=== PATIENT | female | born 1940 | race Caucasian/White ===

== ENCOUNTER → 2021-02-09 12:17 | Outpatient (CLI) | payer MEDICARE, SELFPAY ==
--- NOTE | ~2021-02-09 | XR_ITS ---
EXAMINATION: XR knee RT 3V DATE: 02/09/2021 13:30 INDICATION: Right knee pain TECHNIQUE: Three views of the right knee were obtained. COMPARISON: None. FINDINGS: Bone alignment is normal. There is no fracture. 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 No joint effusion/synovitis. Calcified atherosclerosis is noted. IMPRESSION: 1. 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 Reviewed, dictated and finalized at location A.
--- NOTE | ~2021-02-09 | XR_ITS ---
XR knee LT 3V DATE: 02/09/2021 13:30 INDICATION: Right knee pain, left knee pain. TECHNIQUE: [place] and standing AP and lateral views COMPARISON: None FINDINGS: Diffuse osteopenia. Superior pole patellar enthesopathy at quadriceps tendon insertion. There is prominent joint space narrowing at the medial compartment with particular spurring. No fracture or dislocation or joint effusion. No radiopaque intra-articular loose body or chondrocalc inosis. No periosteal reaction or bone destruction. Femoral and popliteal artery calcification IMPRESSION: Osteoarthritis involving particularly the medial compartment Reviewed, dictated and finalized at location B.
== END ==
PROVIDERS: PCP Physician Assistant; Visit Provider Physician Assistant
DX: M25.561 Pain in right knee (principal); M25.562 Pain in left knee
CPT/HCPCS: 73562

== ENCOUNTER 2021-03-05 12:57 | Outpatient (CLI) | payer MEDICARE, SELFPAY ==
--- NOTE | ~2021-03-05 | DEXA_ITS ---
Bone Density Report Name: Cinthya Armando Age: 80 Sex: Female Ethnicity: White Date of : 1940 Indication: postmenopausal; height loss; Referring Provider: EDKAMILA Study: Bone densitometry was performed. Exam Date: March 05, 2021 Accession number: [id number] Bone Density: Region BMD T-score Z-score Classification AP Spine (L1-L4) 1.173 1.1 3.9 Normal Femoral Neck (Left) 0.709 -1.3 1.2 Osteopenia Total Hip (Left) 0.896 -0.4 1.8 Normal Total Hip Bilateral Avg 0.886 -0.5 1.8 Normal Femoral Neck (Right) 0.696 -1.4 1.1 Osteopenia Total Hip (Right) 0.875 -0.6 1.7 Normal World Health Organization criteria for BMD impression classify patients as: Normal (T-score at or above -1.0), Osteopenia (T-score between -1.0 and -2.5), or Osteoporosis (T-score at or below -2.5). 10-year Fracture Risk(1): Major Osteoporotic Fracture 13% Hip Fracture 3.1% Reported Risk Factors: [place] (), Neck BMD=0.696, BMI=30.9 (1) FRAX(R) Version 3.08. Fracture probability calculated for an untreated patient. Fracture probability may be lower if the patient has received treatment. Previous Exams: Region Exam Age BMD T-score BMD Change BMD Change Date g/cm2 vs Baseline vs Previous AP Spine(L1-L4) 03/05/2021 80 1.173 1.1 0.072(6.5%)# 0.072(6.5%)# 07/19/2002 62 1.101 0.5 Total Hip(Left) 03/05/2021 80 0.896 -0.4 -0.042(-4.5%)# -0.042(-4.5%)# 07/19/2002 62 0.939 0.0 Total Hip(Right) 03/05/2021 80 0.875 -0.6 -0.006(-0.7%)# -0.006(-0.7%)# 07/19/2002 62 0.881 -0.5 *Denotes significance at 95% confidence level, LSC for AP Spine = 0.022 g/cm2, LSC for Total Hip = 0.027 g/cm2 Clinical Information Provided by Patient: Has used the following medications: Vitamin D, Calcium Patient maximum height was 64 Drinks caffeinated beverages Onset of menses at age 11 Number of children 3 Impression: The patient has low bone mass, based on the Right Femoral Neck T-score. The patient has an estimated ten-year risk of hip fracture of 3.1% and an estimated ten-year risk of major fracture of 13%, based on the WHO FRAX algorithm. No significant bone loss was observed. Discussion: BONE DENSITY IS LOW AT ONE OR MORE SKELETAL SITES. THE PATIENT'S BMD AND CLINICAL RISK FACTORS CONTRIBUTE TO THIS PATIENT'S INCREASED RISK OF FRACTURE. This patient's lowest T-score is low at one or more skeletal sites. It meets the World Health Organization's
== END 2021-03-05 12:58 | disposition home or self-care (01) ==
LOC: ANHIMG 13:00
PROVIDERS: PCP Physician Assistant; Visit Provider Physician Assistant
DX: Z78.0 Asymptomatic menopausal state (principal); M85.852 Other specified disorders of bone density and structure, left thigh; M85.851 Other specified disorders of bone density and structure, right thigh
CPT/HCPCS: 77080

== ENCOUNTER 2022-04-21 14:53 | Emergency (ER) | payer MEDICARE, SELFPAY ==
[2022-04-21] VITALS (20 sets, daily range): BP systolic 145–185; BP diastolic 67–135; PULSE 67–85; RESP 7–23; TEMP 36.9; O2SAT 97–100
--- NOTE | ~2022-04-21 | XR_ITS ---
XR chest 1V portable 04/21/2022 17:00 Indication: Cough and weakness. Covid positive. Procedure: AP portable chest Comparison: Comparison to multiple prior studies sequentially, with oldest reviewed study dated 06/2009. Findings: Lung bases are attenuated due to breast implants. Heart size normal. Possible small volume of fluid in the right fissure. No focal pneumonia, edema, or pneumothorax. There is atherosclerosis. Impression: 1: Possible small volume of fluid in the right fissure. Otherwise, no acute cardiopulmonary disease. Reviewed, dictated and finalized at location A. NG BRUSHER Impression: 1: Possible small volume of fluid in the right fissure. Otherwise, no acute car diopulmonary disease.
--- NOTE | 2022-04-21 15:18 | ECG_ITS ---
Measurements Intervals [place] Rate: 72 P: 55 UT: 176 QRS: 38 QRSD: 101 T: 79 QT: 396 QTc: 435 Interpretive Statements SINUS RHYTHM NONSPECIFIC T-WAVE ABNORMALITY BORDERLINE ECG NO PREVIOUS ECG AVAILABLE FOR COMPARISON Electronically Signed On 04-22-2022 7:42:24 [employer] by Jerry Napoles M.D.
[2022-04-21 15:41] LABS: Eosinophils Percent Auto 0.5 % (0-4.4); Hematocrit 43.5 % (37.0-47.0); Hemoglobin 14.4 g/dL (12.0-15.0); Lymphocytes Absolute Auto 1.03 K/mm3 (0.9-3.2); Lymphocytes Percent Auto 27.2 % (18.3-44.2); Mean Corpuscular HGB Conc 33.1 g/dl (32-36); Mean Corpuscular Hemoglobin 30.8 pg (26-34); Mean Corpuscular Volume 92.9 fl (80-100); Monocytes Absolute Auto 0.4 K/mm3 (0.1-0.6); Monocytes Percent Auto 10.8 % (2.6-8.5); Neutrophils Absolute Auto 2.3 K/mm3 (1.3-6.7); Neutrophils Percent Auto 61.5 % (45.5-73.1); Platelet Count Result 213 k/mm3 (150-375); Red Blood Count 4.68 M/mm3 (4.2-5.4); Red Cell Distribution Width 12.9 % (11.5-14.5); White Blood Count 3.8 K/mm3 (4.5-10.0)
[2022-04-21 15:46] LABS: Alanine Aminotransferase 54 U/L (6-35); Albumin Level 4.7 g/dL (3.5-5.1); Alkaline Phosphatase 98 U/L (38-126); Anion Gap 9 mmol/L (8-16); Aspartate Amino Transferase 89 U/L (14-36); Bilirubin,Total 0.6 mg/dL (0.2-1.3); Blood Urea Nitrogen 18 mg/dL (7-17); Carbon Dioxide 30 mmol/L (22-30); Chloride 90 mmol/L (98-107); Estimated CRCL calculation 41 ml/min; Estimated Glomerular Filt Rate > 60; Glucose 99 mg/dL (65-110); Potassium 3.3 mmol/L (3.4-5.0); Sodium 129 mmol/L (137-145)
[2022-04-21 16:12] LABS: Influenza A QL RT-PCR Negative (Negative); Influenza B QL RT-PCR Negative (Negative); SARS-CoV-2 RNA PCR Positive
[2022-04-21 16:53] LABS: Appearance Urine Slightly Cloudy (Clear); Bilirubin Urine Negative (Negative); Blood Urine Negative (Negative); Color Urine Yellow (Yellow); Glucose Urine UA Negative (Negative); Ketones Urine Trace mg/dL (Negative); Leukocyte Esterase Ur 3+ LEU/UL (Negative); Nitrate Urine Positive (Negative); Protein Urine Negative (Negative); Specific Grav Ur <= 1.005 (1.001-1.035); Urobilinogen Urine 0.2 mg/dL (<2.0)
[2022-04-21 17:05] LABS: Bacteria Urine 4+ /hpf; Squamous Epithelial Cell Urine Rare /hpf (Few); WBC Clumps Urine Present /HPF; WBC Urine >75 /hpf
[2022-04-21 17:11] LABS: Add Urine Microscopic? YES
[2022-04-21] MEDS: SODIUM CHLORIDE 0.9% IV 500 ML 999 ML IV CONT ×2 (17:33→19:04)
--- NOTE | 2022-04-21 17:51 | ED.WEAKNESS ---
HPI - Weakness General Chief complaint: Weakness Stated complaint: pneumonia Time Seen by Provider: 04/21/22 17:01 Source: patient Mode of arrival: ambulatory Limitations: no limitations History of Present Illness HPI Narrative: This is an 82-year-old female that presents to the emergency department for generalized weakness. Reports she was diagnosed with COVID a week ago. Reports she thought she was starting to feel better yesterday. She woke up this morning and felt very weak. She has no longer having any fevers. She does have some continued cough and congestion. Denies chest pain, shortness of breath, abdominal pain, vomiting, or dysuria. Related Data Allergies Allergy/AdvReac Type Severity Reaction Status Date / Time No Known Allergies Allergy Unknown Verified 04/21/22 15:17 Review of Systems Review of Systems: CONSTITUTIONAL: Denies fever ENT: Reports congestion CARDIOVASCULAR: Denies chest pain, or edema. RESPIRATORY: Reports cough. Denies dyspnea. GASTROINTESTINAL: Denies abdominal pain, nausea, vomiting GENITOURINARY: Denies dysuria NEUROLOGIC: Reports generalized weakness. All systems reviewed & are unremarkable except as noted in HPI and below PMFSH Past Medical History Medical History (Updated 04/21/22 @ 19:31 by Regina Hatch PA-C) History of hyperlipidemia History of hypertension Social History Social History (Updated 04/21/22 @ 17:53 by Regina Hatch PA-C) Smoking status: Former smoker Exam Narrative: GENERAL: Well-appearing, well-nourished, and in no acute distress. HEAD: Normocephalic, atraumatic. EYES: EOMI. ENT: Nares clear, no rhinorrhea or epistaxis. Mucous membranes moist. Oropharynx without tonsillar hypertrophy exudate or other lesions. Bilateral TMs pearly dean non-bulging NECK: Supple. No adenopathy or masses. CHEST: Clear to auscultation. No respiratory distress. No wheezes rales or rhonchi HEART: Regular rate and rhythm. No murmur heard. Normal peripheral pulses. EXTREMITIES: Normal range of motion. No edema. SKIN: Warm, dry, no rash. NEURO: No focal deficits. Alert and oriented x3. PSYCH: Normal mood and affect Course Consultations Consultation #1: Spoke with patient's PCP and patient and workupLe. She feels comfortable with discharge as this is patient's wish to go home. We will follow-up with further blood work and monitoring Date: 04/21/22 Vital Signs Vital signs: Vital Signs Temperature 98.5 F 04/21/22 15:14 Pulse Rate 85 04/21/22 15:14 Respiratory Rate 16 04/21/22 15:14 Blood Pressure 145/85 H 04/21/22 15:14 Pulse Oximetry 98 04/21/22 15:14 Temperature 98.5 F 04/21/22 15:14 Pulse Rate 70 04/21/22 18:37 Respiratory Rate 17 04/21/22 18:37 Blood Pressure 185/76 H 04/21/22 18:37 Pulse Oximetry 100 04/21/22 18:37 MDM - Weakness MDM Narrative Medical decision making narrative: Patient presents to the emergency department for generalized weakness. She is afebrile and nontoxic-appearing. Has been intermittently hypertensive, otherwise her vitals are normal. CBC shows leukopenia consistent with her current viral infection. Metabolic panel does show some evidence of dehydration. Patient given a liter of IV fluids in the ED. Potassium is also mildly low at 3.3, this was replaced. Mild transaminitis as seen with COVID infection. She is COVID positive. UA also shows evidence of infection. This will be sent for culture. Chest x-ray without evident acute cardiopulmonary abnormality. They do note a possible small volume of fluid in the right fissure. Patient does not have any chest pain or shortness of breath. Patient was updated on case findings. She was offered admission for further management of dehydration and UTI versus discharge home with close follow-up. Patient wishes to be discharged. She is able to ambulate to the bathroom easily. Spoke with her primary about work-up who will follow-up. She will be sta
[2022-04-21] MEDS: POTASSIUM CHLORIDE 20 MEQ PACKET (FOR LIQUID) 40 MEQ PO (18:07)
[2022-04-21 18:14] LABS: Magnesium 2.4 mg/dL (1.6-2.3)
[2022-04-21] MEDS: LOSARTAN POTASSIUM 100 MG TABLET PO (19:54)
== END 2022-04-21 19:57 | disposition home or self-care (01) ==
PROVIDERS: Emergency Medicine; Emergency Provider Physician Assistant; PCP Physician Assistant
DX: N39.0 Urinary tract infection, site not specified (principal); E86.0 Dehydration; E87.1 Hypo-osmolality and hyponatremia; E87.6 Hypokalemia; U07.1 COVID-19; E78.5 Hyperlipidemia, unspecified; I10 Essential (primary) hypertension; Z87.891 Personal history of nicotine dependence; R94.31 Abnormal electrocardiogram [ECG] [EKG]
CPT/HCPCS: 36415; 71045; 80053; 81001; 83735; 85025; 87077; 87086; 87186; 87636; 93005; 96365; 96367; 99284; A9270; J0131; J0696; J7040

== ENCOUNTER 2024-03-06 10:04 | Outpatient (CLI) | payer MEDICARE, SELFPAY ==
--- NOTE | ~2024-03-06 | XR_ITS ---
3 VIEWS LUMBAR SPINE Ordering provider: [place], [place] History: . Lumbar back pain . Comparison: November 23, 2017 FINDINGS: VERTEBRAL BODIES:Dextroscoliosis No visible fracture or subluxation. Degenerative changes of the spi ne. DISK SPACES: Narrowing of the disc T12-L1, L1-L2, L2-L3, L3-L4, L4-L5 and L5-S1. Multilevel facet joint disease. SOFT TISSUES: Aortic atherosclerotic changes. IMPRESSION: No acute osseous abnormality lumbar spine. Dextroscoliosis. Multilevel degenerative disc disease. Reviewed, dictated and finalized at location A.
== END 2024-03-06 10:05 | disposition home or self-care (01) ==
LOC: MICIMG 10:06
PROVIDERS: PCP Physician Assistant; Visit Provider Physician Assistant
DX: M41.86 Other forms of scoliosis, lumbar region (principal); M51.35 Other intervertebral disc degeneration, thoracolumbar region
CPT/HCPCS: 72100

== ENCOUNTER 2025-03-04 13:26 | Outpatient (CLI) | payer MEDICARE, SELFPAY ==
--- NOTE | ~2025-03-04 | XR_ITS ---
XR cervical spine 4-5V Indication: Cervicalgia Comparison: None Findings: Grade 1 anterolisthesis of C3 on C4 C4 C5, no fracture is identified. There is no subluxation with flexion-extension. Moderate loss of disc height throughout. Soft tissues unremarkable Impression: No acute abnormality. Reviewed, dictated and finalized at location P. Impression: No acute abnormality.
== END 2025-03-04 13:27 | disposition home or self-care (01) ==
PROVIDERS: PCP Physician Assistant; Visit Provider Physician Assistant
DX: M43.12 Spondylolisthesis, cervical region (principal)
CPT/HCPCS: 72050